=== PATIENT | male | born 1995 | race American Indian/Alaskan Native ===

== ENCOUNTER 2016-08-11 08:51 | Emergency (ER) | payer MEDICAID ==
[~2016-08-11] VITALS: Ht 162.6 cm; Wt 50.8 kg
[2016-08-11 08:56] VITALS: BP 130/80
== END 2016-08-11 10:10 | disposition home or self-care (01) ==
LOC: ED 08:51
DX: S63.501A Unspecified sprain of right wrist, initial encounter (principal); X58.XXXA Exposure to other specified factors, initial encounter; Y93.02 Activity, running; Y92.89 Other specified places as the place of occurrence of the external cause; Y99.8 Other external cause status
CPT/HCPCS: A4570